=== PATIENT | female | born 1945 | race Caucasian/White ===

== ENCOUNTER 2019-11-24 15:44 | Emergency (ER) | payer MEDICARE ==
[~2019-11-24] VITALS: Ht 154.9 cm; Wt 68.9 kg
--- NOTE | 2019-11-24 15:51 | NUR ---
Patient complained about IV attemp and stated,"Don't do too much to me, or I'm leaving." Patient was educated on need for blood draw and IV placement. 1 failed IV attempt made and patient refused IV placement and blood draw.
[2019-11-24 15:52] VITALS: BP_SYST 181
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
--- NOTE | 2019-11-24 16:00 | NUR ---
ER at bedside examining patient.
--- NOTE | 2019-11-24 16:18 | NUR ---
Patient does not wish to proceed with medical care recommended by Dr Sun. Patient given information related to possible complications, up to and including , which could occur as a result of leaving hospital at this time. Patient verbalizes understanding of risks involved leaving against medical advice. Patient has signed AMA form.
== END 2019-11-24 16:17 | disposition left against medical advice (07) ==
LOC: SED 15:44
DX: R07.9 Chest pain, unspecified (principal); I10 Essential (primary) hypertension; E11.9 Type 2 diabetes mellitus without complications; Z88.0 Allergy status to penicillin; Z88.2 Allergy status to sulfonamides
CPT/HCPCS: 93005; 99283